=== PATIENT | female | born 1950 | race Caucasian/White ===

== ENCOUNTER 2016-09-03 12:26 | Emergency (ER) | payer MEDICARE, OTHER ==
[~2016-09-03] VITALS: Ht 152.4 cm; Wt 65.0 kg
[2016-09-03] MEDS ORDERED: IBUPROFEN 600MG TABLET PO ONE (13:30)
[2016-09-03] MEDS ORDERED: ACETAMINOPHEN 325MG TABLET PO ONE (14:15)
[2016-09-03 15:30] VITALS: BP 148/80
== END 2016-09-03 16:08 | disposition home or self-care (01) ==
LOC: ER 12:31
DX: S90.00XA Contusion of unspecified ankle, initial encounter (principal); I10 Essential (primary) hypertension; Z86.73 Personal history of transient ischemic attack (TIA), and cerebral infarction without residual deficits; V53 Occupant of pick-up truck or van injured in collision with car, pick-up truck or van; Y93.89 Activity, other specified; Y99.8 Other external cause status; Y92.89 Other specified places as the place of occurrence of the external cause
CPT/HCPCS: 73590; 73610; 99284